=== PATIENT | male | born 1980 | race Hispanic/Latino ===

== ENCOUNTER 2022-02-01 00:44 | Emergency (ER) | payer OTHER ==
[~2022-02-01] VITALS: Ht 170.2 cm; Wt 102.1 kg
[2022-02-01] MEDS ORDERED: ONDANSETRON 4MG INJ ONE (01:06)
[2022-02-01 01:10] LABS: BASOPHILS % (AUTO) 1.7 % (0.0-5.0); EOSINOPHILS % (AUTO) 0.6 % (0.0-8.0); HEMATOCRIT 42.3 % (42-54); MEAN CORPUSCULAR HEMOGLOBIN 29.6 pg (27.0-33.0); MONOCYTES % (AUTO) 14.4 % (3.0-13.0); NEUTROPHILS % (AUTO) 75.9 % (40.0-77.0); RED BLOOD CELL COUNT(AUTO) 4.86 MIL/uL (4.50-6.20); RED CELL DISTRIBUTION WIDTH 16.7 % (11.0-15.5); WHITE BLOOD COUNT (AUTO) 5.3 K/uL (4.8-10.8)
[2022-02-01 01:13] LABS: APPEARANCE,URINE CLOUDY (CLEAR); BILIRUBIN,URINE MODERATE (NEGATIVE); COLOR,URINE DARK YELLOW (YELLOW); GLUCOSE, URINE (UA) 100 mg/dL (NEGATIVE); KETONES,URINE 15 mg/dL (NEGATIVE); LEUKOCYTE ESTERASE ,URINE NEGATIVE (NEGATIVE); NITRATE,URINE POSITIVE (NEGATIVE); OCCULT BLOOD,URINE LARGE (NEGATIVE); PH,URINE 5.5 (5.0-8.0); PROTEIN,URINE >=300 mg/dL (NEGATIVE)
[2022-02-01 01:18] LABS: CREATININE 1.8 mg/dL (0.5-1.5); POTASSIUM 3.8 mmol/L (3.5-5.1)
[2022-02-01 01:20] LABS: BACTERIA,URINE Few /HPF (None Seen); MUCUS,URINE Moderate LPF (None Seen); RENAL EPITHELIAL CELLS,URINE Moderate /HPF (None Seen); SQUAMOUS EPITHELIAL CELL,UR Few /HPF (0-2)
[2022-02-01 01:21] LABS: AMORPHOUS SEDIMENT,UR Many /LPF (None Seen); AMPHET/METH SCREEN,URINE NEGATIVE (NEGATIVE); BARBITURATE SCREEN, URINE NEGATIVE (NEGATIVE); BENZODIAZEPINES SCREEN,URINE NEGATIVE (NEGATIVE); CANNABINOID SCREEN,URINE NEGATIVE (NEGATIVE); COCAINE SCREEN,URINE NEGATIVE (NEGATIVE); PHENCYCLIDINE SCREEN,URINE NEGATIVE (NEGATIVE)
[2022-02-01 01:25] LABS: ALBUMIN 4.3 g/dL (3.5-5.0); PLATELET COUNT (AUTO) 66 K/uL (130-400); TOTAL PROTEIN, SERUM 9.7 g/dL (6.0-8.3)
[2022-02-01 01:27] LABS: PLATELET MORPHOLOGY COMMENT DECREASED
[2022-02-01] MEDS ORDERED: 0.9%NACL 1000ML 1,000 ML IV ONE (01:30)
[2022-02-01] MEDS ORDERED: ONDANSETRON 4MG INJ IVP ONE (01:30)
[2022-02-01] MEDS ORDERED: DIAZEPAM 5 MG/ML 2 ML SYG IV ONE (01:30)
[2022-02-01] MEDS ORDERED: DIAZEPAM 5 MG/ML 2 ML SYG IVP ONE (03:00)
[2022-02-01 03:17] VITALS: BP 152/84
== END 2022-02-01 03:10 | disposition left against medical advice (07) ==
LOC: EDH 00:44
DX: F10.239 Alcohol dependence with withdrawal, unspecified (principal); R56.9 Unspecified convulsions; R25.1 Tremor, unspecified; I10 Essential (primary) hypertension; Z90.49 Acquired absence of other specified parts of digestive tract
CPT/HCPCS: 99284; 96374; 96361; 96375; 84484; 80053; 80305; 85025; 87088; 36415; 96376; 93005; 81001; J7030; J3360 ×2; J2405